=== PATIENT | male | born 1960 | race Caucasian/White ===

== ENCOUNTER → 2020-04-23 14:18 | Outpatient (BNVA) | payer MEDICARE, MEDICAID, SELFPAY | PROVIDERS: Visit Provider Family Medicine | DX: I10 Essential (primary) hypertension (principal); E78.5 Hyperlipidemia, unspecified; K21.9 Gastro-esophageal reflux disease without esophagitis; J43.8 Other emphysema; J45.40 Moderate persistent asthma, uncomplicated; R25.2 Cramp and spasm; E78.2 Mixed hyperlipidemia; G47.34 Idiopathic sleep related nonobstructive alveolar hypoventilation; Z72.0 Tobacco use | CPT/HCPCS: 80053; 80061; 83735; 85025 ==

== ENCOUNTER → 2020-12-24 09:19 | Outpatient (BNVA) | payer MEDICARE, MEDICAID, SELFPAY | PROVIDERS: PCP Family Medicine; Visit Provider Family Medicine | DX: I10 Essential (primary) hypertension (principal); E78.5 Hyperlipidemia, unspecified; R73.03 Prediabetes; Z13.1 Encounter for screening for diabetes mellitus; Z83.3 Family history of diabetes mellitus; R25.2 Cramp and spasm; J43.8 Other emphysema; J45.40 Moderate persistent asthma, uncomplicated; Z72.0 Tobacco use | CPT/HCPCS: 80048; 83036; 83735 ==